=== PATIENT | female | born 1940 | race Asian ===

== ENCOUNTER 2024-09-07 13:05 | Inpatient (IN) | payer OTHER ==
[~2024-09-07] VITALS: Ht 157.5 cm; Wt 54.4 kg
[2024-09-07] MEDS ORDERED: ONDANSETRON HCL/PF 4 MG/2 ML VIAL ONE (13:31)
[2024-09-07] MEDS: IV NS 0.9% 1,000 ML BAG IV ONE (13:36)
[2024-09-07] MEDS: ONDANSETRON HCL/PF 4 MG/2 ML VIAL IVP ONE (13:37)
[2024-09-07 13:47] LABS: BASOPHILS # (AUTO) 0.1 K/uL (0.0-0.2); BASOPHILS % (AUTO) 2.2 % (0.0-2.0); EOSINOPHILS % (AUTO) 0.4 % (0.0-6.0); HEMATOCRIT 30 % (33-45); LYMPHOCYTES # (AUTO) 0.9 K/uL (0.8-4.8); LYMPHOCYTES % (AUTO) 18.5 % (20.0-44.0); MEAN CORPUSCULAR HEMOGLOBIN 35 PG (26.0-33.0); MEAN CORPUSCULAR HGB CONC 34 g/dl (31.0-36.0); MEAN CORPUSCULAR VOLUME 105 fL (82-100); MONOCYTES # (AUTO) 0.3 K/uL (0.1-1.30); MONOCYTES % (AUTO) 6.3 % (2.0-12.0); NEUTROPHILS # (AUTO) 3.5 K/uL (1.8-8.9); NEUTROPHILS % (AUTO) 72.6 % (43.0-81.0); PLATELET COUNT (AUTO) 161 K/uL (150-450); RED BLOOD CELL COUNT(AUTO) 2.84 MIL/uL (4.0-5.2); RED CELL DISTRIBUTION WIDTH 13.8 % (11.5-15.0); WHITE BLOOD COUNT (AUTO) 4.9 K/uL (4.3-11.0)
[2024-09-07] MEDS: PANTOPRAZOLE 80 MG in IV NS 0.9% 100 ML IV ONE (14:37)
[2024-09-07] MEDS: PANTOPRAZOLE 80 MG in IV NS 0.9% 500 ML IV ONE (14:56)
[2024-09-07 14:58] LABS: INR 1.09 (0.91-1.10); PARTIAL THROMBOPLASTIN TIME 22.1 SEC (24.3-34.3); PROTHROMBIN TIME 11.2 SECS (9.2-11.1)
[2024-09-07 14:59] LABS: CALCIUM, SERUM 8.8 mg/dL (8.5-10.1); CARBON DIOXIDE 19 mmol/L (21-32); CHLORIDE 103 mmol/L (98-107); CREATININE 1.6 mg/dL (0.6-1.3); GLUCOSE 151 mg/dL (74-106); POTASSIUM 5.3 mmol/L (3.5-5.1); SODIUM SERUM 134 mmol/L (136-145); UREA NITROGEN, BLOOD 59 mg/dL (7-18)
[2024-09-07 15:05] LABS: ALANINE AMINOTRANSFERASE 23 U/L (12-78); ALBUMIN 2.8 g/dL (3.4-5.0); ALKALINE PHOSPHATASE 213 U/L (46-116); ASPARTATE AMINOTRANSFERASE 31 U/L (15-37); BILIRUBIN,DIRECT 0.4 mg/dL (0.0-0.2); BILIRUBIN,TOTAL 0.8 mg/dL (0.2-1.0); LIPASE 34 U/L (16-77); TOTAL PROTEIN, SERUM 7.6 g/dL (6.4-8.2)
[2024-09-07] MEDS ORDERED: IRBE150T28 PO (15:18)
[2024-09-07] MEDS ORDERED: ISOS120T13 PO (15:18)
[2024-09-07] MEDS ORDERED: URSO250T12 PO (15:18)
[2024-09-07] MEDS ORDERED: LATA2.5D15 RIGHTEYE (15:18)
[2024-09-07] MEDS ORDERED: METF-440 PO (15:18)
[2024-09-07] MEDS ORDERED: NIFE60TA73 PO (15:18)
[2024-09-07] MEDS ORDERED: CARV3.122 PO (15:18)
[2024-09-07] MEDS ORDERED: EPLE25TA10 PO (15:18)
[2024-09-07] MEDS ORDERED: ASPI-1420 PO (15:18)
[2024-09-07] MEDS ORDERED: ATOR40TA PO (15:18)
[2024-09-07 15:42] LABS: APPEARANCE,URINE CLEAR (CLEAR); BILIRUBIN,URINE Negative (NEGATIVE); BLOOD, URINE Negative Ery/uL (NEGATIVE); COLOR,URINE YELLOW (YELLOW); KETONES,URINE Negative (NEGATIVE); LEUKOCYTE ESTERASE ,URINE Trace (NEGATIVE); PROTEIN,URINE 30 mg/dl (NEGATIVE); UGLUCOSE Negative (NEGATIVE); UROBILINOGEN,URINE 0.2 EU/dL (0.2)
[2024-09-07 15:51] LABS: NITRITE, URINE NEGATIVE (NEGATIVE)
[2024-09-07 15:52] LABS: ADD URINE CULTURE NO; BACTERIA,URINE Few /HPF (None Seen); RBC,URINE 0-2 /HPF (0-2); SQUAMOUS EPITHELIAL CELL,UR Few /HPF (None Seen)
[2024-09-07] MEDS: CALCIUM CHLORIDE 1,000 MG/10 ML DISP.SYRIN IV ONE (15:56)
[2024-09-07] MEDS: SODIUM BICARBONATE SYR 50 MEQ/50 ML DISP.SYRIN IV ONE (15:57)
[2024-09-07] MEDS ORDERED: MAGNESIUM HYDROXIDE 30 ML UDC PO PRN (17:00)
[2024-09-07] MEDS ORDERED: Z GUARD REMEDY 4 OZ OINT TP PRN (17:00)
[2024-09-07] MEDS ORDERED: ONDANSETRON HCL/PF 4 MG/2 ML VIAL IVP PRN (17:00)
[2024-09-07] MEDS: OCTREOTIDE 50 MCG/ML AMPUL IV ONE (17:00)
[2024-09-07] MEDS ORDERED: MAG HYDROX/AL HYDROX/SIMETH 30 ML UDC PO PRN (17:00)
[2024-09-07] MEDS ORDERED: ZOLPIDEM TARTRATE 5 MG TABLET PO PRN (17:00)
[2024-09-07] MEDS ORDERED: ACETAMINOPHEN 325 MG TABLET PO PRN (17:00)
[2024-09-07] MEDS: CARVEDILOL 3.125 MG TABLET PO SCH (17:00)
[2024-09-07] MEDS ORDERED: hydrALAZINE HCL IV 20 MG VIAL ONE (17:10)
[2024-09-07] MEDS: ALBUTEROL FS 2.5 MG/3 ML VIAL.NEB NEB ONE (17:20)
[2024-09-07 17:21] VITALS: O2SAT 98
[2024-09-07] MEDS: hydrALAZINE HCL IV 20 MG VIAL IV PRN (17:23)
[2024-09-07] MEDS ORDERED: hydrALAZINE HCL IV 20 MG VIAL IV PRN (17:30)
[2024-09-07 17:31] VITALS: O2SAT 100; O2SAT 99
[2024-09-07 18:03] LABS: HEMOGLOBIN 7.8 g/dL (11.5-14.8)
[2024-09-07] MEDS: IV D5/0.45 NACL 1,000 ML IV PRN (18:53)
[2024-09-07 20:00] VITALS: BP 178/76; TEMP 98.4; O2SAT 95
[2024-09-07] MEDS: ANCEF 1 GM/50 ML D5W IV SCH (20:17)
[2024-09-07] MEDS ORDERED: CEPHALEXIN MONOHYDRATE 250 MG/5 ML BOTTLE PO SCH (21:00)
[2024-09-07 21:35] VITALS: BP 178/76; TEMP 98.4; O2SAT 95
[2024-09-07] MEDS: LATANOPROST EYE DROP 0.005% 2.5 ML BOTTLE RIGHTEYE SCH (21:35)
[2024-09-08] VITALS (10 sets, daily range): BP systolic 132–180; BP diastolic 48–86; TEMP 98–98.8; O2SAT 96–98
[2024-09-08 07:03] LABS: CALCIUM, SERUM 8.5 mg/dL (8.5-10.1); CREATININE 1.1 mg/dL (0.6-1.3); PHOSPHORUS 2.5 mg/dL (2.5-4.9)
[2024-09-08 07:23] LABS: BASOPHILS % (AUTO) 0.9 % (0.0-2.0); EOSINOPHILS % (AUTO) 0.2 % (0.0-6.0); LYMPHOCYTES # (AUTO) 0.7 K/uL (0.8-4.8); LYMPHOCYTES % (AUTO) 35.1 % (20.0-44.0); MEAN CORPUSCULAR HEMOGLOBIN 35 PG (26.0-33.0); MEAN CORPUSCULAR HGB CONC 34 g/dl (31.0-36.0); MEAN CORPUSCULAR VOLUME 104 fL (82-100); MONOCYTES # (AUTO) 0.2 K/uL (0.1-1.30); MONOCYTES % (AUTO) 11.2 % (2.0-12.0); NEUTROPHILS # (AUTO) 1.1 K/uL (1.8-8.9); NEUTROPHILS % (AUTO) 52.6 % (43.0-81.0); PLATELET COUNT (AUTO) 75 K/uL (150-450); RED CELL DISTRIBUTION WIDTH 13.5 % (11.5-15.0); WHITE BLOOD COUNT (AUTO) 2.1 K/uL (4.3-11.0)
[2024-09-08 07:50] LABS: RED BLOOD CELL COUNT(AUTO) 1.72 MIL/uL (4.0-5.2)
[2024-09-08 07:52] LABS: HEMATOCRIT 18 % (33-45); HEMOGLOBIN 6.1 g/dL (11.5-14.8)
[2024-09-08] MEDS: ISOSORBIDE MONONITRATE (30MG) 30 MG TAB.SR.24H PO SCH (08:42)
[2024-09-08] MEDS: ATORVASTATIN 40 MG TABLET PO SCH (08:42)
[2024-09-08] MEDS: NIFEDIPINE XL 60 MG TAB.ER.24 PO SCH (08:43)
[2024-09-08] MEDS: PANTOPRAZOLE 40 MG VIAL IV SCH (09:21)
[2024-09-08] MEDS ORDERED: ANESTHESIA TRAY IN PYXIS 1 EA TRAY MC ONE (09:29)
[2024-09-08 09:39] LABS: INR 1.13 (0.91-1.10); PARTIAL THROMBOPLASTIN TIME 28.8 SEC (24.3-34.3); PROTHROMBIN TIME 11.9 SECS (9.2-11.1)
[2024-09-08] MEDS: CLONIDINE HCL 0.1MG/24H PTWK 1 EA PATCH TD SCH (09:42)
[2024-09-08] MEDS ORDERED: EPINEPHRINE (1:10,000) SYRINGE 1 MG/10 ML DISP.SYRIN ONE (10:22)
[2024-09-08] MEDS ORDERED: LABETALOL 20 MG/4 ML VIAL ONE (10:34)
[2024-09-08 11:58] LABS: LYMPHOCYTES % (MANUAL) 39 % (16-48); MONOCYTES % (MANUAL) 5 % (0-11.0); NEUTROPHILS % (MANUAL) 56 (42-76)
[2024-09-08 11:59] LABS: ANISOCYTOSIS 1+; PLATELET ESTIMATE DECREASED
[2024-09-08] MEDS ORDERED: EPINEPHRINE (1:10,000) SYRINGE 1 MG/10 ML DISP.SYRIN IVP ONE (12:06)
[2024-09-08 16:05] LABS: BASOPHILS % (AUTO) 1.2 % (0.0-2.0); HEMATOCRIT 23 % (33-45); HEMOGLOBIN 7.9 g/dL (11.5-14.8); LYMPHOCYTES % (AUTO) 32.5 % (20.0-44.0); MEAN CORPUSCULAR HEMOGLOBIN 34 PG (26.0-33.0); MEAN CORPUSCULAR HGB CONC 34 g/dl (31.0-36.0); MEAN CORPUSCULAR VOLUME 99 fL (82-100); MONOCYTES # (AUTO) 0.3 K/uL (0.1-1.30); MONOCYTES % (AUTO) 8.7 % (2.0-12.0); NEUTROPHILS # (AUTO) 1.7 K/uL (1.8-8.9); NEUTROPHILS % (AUTO) 57.6 % (43.0-81.0); PLATELET COUNT (AUTO) 80 K/uL (150-450); RED BLOOD CELL COUNT(AUTO) 2.31 MIL/uL (4.0-5.2); RED CELL DISTRIBUTION WIDTH 16.1 % (11.5-15.0)
[2024-09-08 18:36] LABS: LYMPHOCYTES % (MANUAL) 28 % (16-48); MONOCYTES % (MANUAL) 6 % (0-11.0); NEUTROPHILS % (MANUAL) 66 (42-76); PLATELET ESTIMATE PLATE
[2024-09-08 18:37] LABS: ANISOCYTOSIS 1+; ROULEAUX 1+
[2024-09-08] MEDS: URSODIOL 250 MG PO SCH (20:00)
[2024-09-08] MEDS: EPLERENONE 25 MG PO SCH (20:00)
[2024-09-09] VITALS: BP 141/58; TEMP 98.8; O2SAT 98
[2024-09-09 07:08] LABS: BASOPHILS % (AUTO) 1.9 % (0.0-2.0); EOSINOPHILS % (AUTO) 1.1 % (0.0-6.0); HEMATOCRIT 21 % (33-45); HEMOGLOBIN 7.2 g/dL (11.5-14.8); MEAN CORPUSCULAR HEMOGLOBIN 34 PG (26.0-33.0); MEAN CORPUSCULAR HGB CONC 34 g/dl (31.0-36.0); MEAN CORPUSCULAR VOLUME 99 fL (82-100); MONOCYTES # (AUTO) 0.2 K/uL (0.1-1.30); MONOCYTES % (AUTO) 7.8 % (2.0-12.0); NEUTROPHILS # (AUTO) 1.2 K/uL (1.8-8.9); NEUTROPHILS % (AUTO) 49.2 % (43.0-81.0); RED BLOOD CELL COUNT(AUTO) 2.13 MIL/uL (4.0-5.2); RED CELL DISTRIBUTION WIDTH 15.9 % (11.5-15.0); WHITE BLOOD COUNT (AUTO) 2.4 K/uL (4.3-11.0)
[2024-09-09 07:15] LABS: CALCIUM, SERUM 8.7 mg/dL (8.5-10.1); MAGNESIUM 1.6 mg/dL (1.8-2.4); PHOSPHORUS 2.5 mg/dL (2.5-4.9); POTASSIUM 3.3 mmol/L (3.5-5.1)
[2024-09-09 08:00] VITALS: BP 168/71; TEMP 98.3; O2SAT 100
[2024-09-09] MEDS ORDERED: Magnesium 1GM/D5W 100ML PREMIX 100 ML IV SCH (08:30)
[2024-09-09] MEDS ORDERED: POTASSIUM CL. PREMIX PERIPHER. 50 ML IV SCH (08:30)
[2024-09-09] MEDS: Magnesium 1GM/D5W 100ML PREMIX 100 ML IV SCH (09:12)
[2024-09-09 10:17] LABS: LYMPHOCYTES % (MANUAL) 30 % (16-48); NEUTROPHILS % (MANUAL) 70 (42-76)
[2024-09-09 10:21] LABS: ANISOCYTOSIS 1+; PLATELET ESTIMATE PLATELET CLUMPS SEEN
[2024-09-09] MEDS: POTASSIUM CL. PREMIX PERIPHER. 50 ML IV SCH (10:47)
[2024-09-09 12:04] LABS: PLATELET COUNT (AUTO) 77 K/uL (150-450)
[2024-09-09] MEDS: ANCEF 1 GM/50 ML D5W IV SCH (12:26)
[2024-09-09 16:00] VITALS: BP 192/70; TEMP 98.3; O2SAT 95
[2024-09-09] MEDS: Potassium Chloride 10 MEQ in IV D5/0.45 NACL 1,000 ML IV SCH (16:25)
[2024-09-09 20:00] VITALS: BP 156/65; TEMP 99.1; O2SAT 97
[2024-09-10 06:46] LABS: BASOPHILS % (AUTO) 1.8 % (0.0-2.0); EOSINOPHILS # (AUTO) 0.1 K/uL (0.0-0.7); EOSINOPHILS % (AUTO) 2.7 % (0.0-6.0); HEMATOCRIT 22 % (33-45); HEMOGLOBIN 7.3 g/dL (11.5-14.8); LYMPHOCYTES # (AUTO) 0.9 K/uL (0.8-4.8); LYMPHOCYTES % (AUTO) 34.5 % (20.0-44.0); MEAN CORPUSCULAR HEMOGLOBIN 34 PG (26.0-33.0); MEAN CORPUSCULAR HGB CONC 33 g/dl (31.0-36.0); MEAN CORPUSCULAR VOLUME 104 fL (82-100); MONOCYTES # (AUTO) 0.2 K/uL (0.1-1.30); MONOCYTES % (AUTO) 7.5 % (2.0-12.0); NEUTROPHILS # (AUTO) 1.4 K/uL (1.8-8.9); NEUTROPHILS % (AUTO) 53.5 % (43.0-81.0); PLATELET COUNT (AUTO) 86 K/uL (150-450); RED BLOOD CELL COUNT(AUTO) 2.12 MIL/uL (4.0-5.2); RED CELL DISTRIBUTION WIDTH 16.2 % (11.5-15.0); WHITE BLOOD COUNT (AUTO) 2.5 K/uL (4.3-11.0)
[2024-09-10 07:02] LABS: CALCIUM, SERUM 8.6 mg/dL (8.5-10.1); CREATININE 0.9 mg/dL (0.6-1.3); MAGNESIUM 2.2 mg/dL (1.8-2.4); PHOSPHORUS 2.4 mg/dL (2.5-4.9)
[2024-09-10 08:00] VITALS: BP 190/88; TEMP 98.4; O2SAT 96
[2024-09-10 09:20] VITALS: BP 208/80
[2024-09-10] MEDS ORDERED: PANT40TA2 GT (15:11)
[2024-09-10] MEDS ORDERED: K PHOS NEUTRAL 250 MG TABLET PO ONE (15:30)
[2024-09-10 15:43] LABS: THYROID STIMULATING HORMONE 2.65 uIU/mL (0.358-3.74)
[2024-09-10 16:48] LABS: ANISOCYTOSIS 1+; BASOPHILS % (MANUAL) 0 % (0.0-2.0); EOSINOPHILS % (MANUAL) 2 % (0-4); LYMPHOCYTES % (MANUAL) 32 % (16-48); MONOCYTES % (MANUAL) 5 % (0-11.0); NEUTROPHILS % (MANUAL) 61 (42-76); PLATELET ESTIMATE DECREASED
[2024-09-10 17:05] LABS: RHEUMATOID FACTOR SCREEN NEGATIVE (NEGATIVE)
[2024-09-10 17:26] LABS: HIV-1 p24 ANTIGEN NON REACTIVE (NONREACTIVE); HIV-1/2 ANTIBODY NON REACTIVE (NONREACTIVE)
[2024-09-11 08:07] LABS: IMMUNOGLOBULIN A, SERUM 236 mg/dL (64-422); IMMUNOGLOBULIN G, SERUM 1645 mg/dL (586-1602); IMMUNOGLOBULIN M, SERUM 51 mg/dL (26-217)
[2024-09-11 09:09] LABS: FREE KAPPA LT CHAINS SERUM 59.4 mg/L (3.3-19.4); FREE LAMBDA LT CHAIN SERUM 61.3 mg/L (5.7-26.3); HEPATITIS B CORE AB, TOTAL Negative (Negative); HEPATITIS B SURFACE AB (QUAL) Reactive (.); KAPPA/LAMBDA RATIO SERUM 0.97 (0.26-1.65)
[2024-09-11 11:10] LABS: FOLIC ACID 17.4 ng/mL (>3.0)
[2024-09-11 13:07] LABS: *ANA ANTI-CENTROMERE B AB <0.2 AI (0.0-0.9); *ANA ANTI-DNA(DS) AB, QN <1 IU/mL (0-9); *ANA ANTI-JO-1 <0.2 AI (0.0-0.9); *ANA ANTICHROMATIN ANTIBODY 0.2 AI (0.0-0.9); *ANA RNP ANTIBODIES 0.3 AI (0.0-0.9); *ANA SJOGREN'S ANTI-SS-A 0.6 AI (0.0-0.9); *ANA SJOGREN'S ANTI-SS-B 0.4 AI (0.0-0.9); *ANAANTI-SCLERODERMA-70 AB <0.2 AI (0.0-0.9); *ANASMITH AB <0.2 AI (0.0-0.9)
== END 2024-09-10 17:20 | disposition home or self-care (01) | DRG 377 ==
LOC: ER 13:40 → MED 16:35 → TELE 18:41 → MED 09-09
PROVIDERS: ADMIT Student in an Organized Health Care Education/Training Program; ATTEND Student in an Organized Health Care Education/Training Program
PROC: 3E0G8GC Introduction of Other Therapeutic Substance into Upper GI, Via Natural or Artificial Opening Endoscopic (ICD-10-PCS; 2024-09-08)
PROC: 30233N1 Transfusion of Nonautologous Red Blood Cells into Peripheral Vein, Percutaneous Approach (ICD-10-PCS; 2024-09-08)
PROC: 0DB78ZX Excision of Stomach, Pylorus, Via Natural or Artificial Opening Endoscopic, Diagnostic (ICD-10-PCS; 2024-09-08)
PROC: 05HB33Z Insertion of Infusion Device into Right Basilic Vein, Percutaneous Approach (ICD-10-PCS; 2024-09-08)
PROC: B54MZZA Ultrasonography of Right Upper Extremity Veins, Guidance (ICD-10-PCS; 2024-09-08)
PROC: 0W3P8ZZ Control Bleeding in Gastrointestinal Tract, Via Natural or Artificial Opening Endoscopic (ICD-10-PCS; principal; 2024-09-08 12:00)
DX: K25.4 Chronic or unspecified gastric ulcer with hemorrhage (principal); N17.0 Acute kidney failure with tubular necrosis; D61.818 Other pancytopenia; E44.0 Moderate protein-calorie malnutrition; E87.1 Hypo-osmolality and hyponatremia; D62 Acute posthemorrhagic anemia; E11.9 Type 2 diabetes mellitus without complications; E87.5 Hyperkalemia; I25.10 Atherosclerotic heart disease of native coronary artery without angina pectoris; Z79.84 Long term (current) use of oral hypoglycemic drugs; D53.9 Nutritional anemia, unspecified; E78.5 Hyperlipidemia, unspecified; I10 Essential (primary) hypertension; K29.71 Gastritis, unspecified, with bleeding; K74.60 Unspecified cirrhosis of liver; Z68.21 Body mass index [BMI] 21.0-21.9, adult; J34.0 Abscess, furuncle and carbuncle of nose
CPT/HCPCS: 36410; 36415; 71045-TC; 80048-TC; 80076-TC; 81001; 82607-TC; 82728-TC; 82784; 82962-TC; 83540-TC; 83690-TC; 83735-TC; 84100-TC; 84155; 84165; 84443-TC; 84484-TC; 85025-TC; 85027-TC; 85610-TC; 85730-TC; 86225; 86235; 86334; 86431-TC; 86704; 86706; 86803; 86850-TC; 87086-TC; 87340; 87806; A4223; G0378; J0171; J0360; J0690; J2354; J2405; J2470; J2704; J3475; J3480; J3490; J7030; J7040; J7050; J7060; P9016